=== PATIENT | male | born 1995 | race Caucasian/White ===

== ENCOUNTER 2018-12-26 01:00 | Emergency (ER) | payer SELFPAY ==
[~2018-12-26] VITALS: Ht 165.1 cm; Wt 75.0 kg
[~2018-12-26 01:00] MED LIST: CEPH-443 PO; SULF1TAB31 PO
[2018-12-26 01:08] VITALS: Ht 165.1 cm; Wt 75.0 kg
[2018-12-26] MEDS ORDERED: SOD CHLORIDE 0.9% 1,000 ML IV ONE (02:00)
[2018-12-26 02:40] VITALS: BP 128/66; PULSE 60; RESP 17
== END 2018-12-26 02:42 | disposition home or self-care (01) ==
LOC: E/R 01:00
DX: S21.111A Laceration without foreign body of right front wall of thorax without penetration into thoracic cavity, initial encounter (principal); I10 Essential (primary) hypertension; F17.210 Nicotine dependence, cigarettes, uncomplicated; X58.XXXA Exposure to other specified factors, initial encounter; Y92.9 Unspecified place or not applicable
CPT/HCPCS: 71045; 85025; J7030

== ENCOUNTER 2018-12-26 12:21 | Emergency (ER) | payer SELFPAY ==
[~2018-12-26] VITALS: Ht 165.1 cm; Wt 74.8 kg
[2018-12-26 12:36] VITALS: BP 123/75; PULSE 64; RESP 16; Ht 165.1 cm; Wt 74.8 kg
== END 2018-12-26 13:15 | disposition left against medical advice (07) ==
LOC: FTE 12:21
DX: Z53.21 Procedure and treatment not carried out due to patient leaving prior to being seen by health care provider (principal)